=== PATIENT | female | born 2000 | race Caucasian/White ===

== ENCOUNTER 2021-11-18 19:22 | Emergency (ER) | payer OTHER, SELFPAY ==
[2021-11-18 19:43] VITALS: BP 119/76; PULSE 105; RESP 18; TEMP 37.1; O2SAT 100
--- NOTE | 2021-11-18 20:14 | ED.GENADULT ---
HPI - General Adult General Chief complaint: Upper Respiratory Infection Stated complaint: sinus inf Source: patient Mode of arrival: ambulatory Limitations: no limitations History of Present Illness HPI narrative: Patient presents for evaluation of sinus symptoms for last 3 days. She reports sinus congestion, mucopurulent discharge from her nares, congested sensation in her ears and bilateral tonsillar enlargement. She has a history of recurrent sinusitis, for which she has seen ENT in the past. She was supposed to have a CT of her sinuses done but her insurance denied this. She reports chills without fever. No nausea, vomiting, diarrhea. No recent sick contacts to her knowledge. She was recently around people who were smoking and also was at a [place]. She indicates that these exposures likely contributed to her symptoms. She tried taking some Mucinex without considerable improvement in her symptoms thereafter. Related Data Home Medications Medication Instructions Recorded Confirmed cetirizine 10 mg tablet 10 mg PO DAILY 11/18/21 11/18/21 fluticasone propionate 50 2 spray intranasal DAILY 11/18/21 11/18/21 mcg/actuation nasal spray,suspension omeprazole 20 mg capsule,delayed 20 mg PO DAILY 11/18/21 11/18/21 release Allergies Allergy/AdvReac Type Severity Reaction Status Date / Time Penicillins Allergy Mild itching Verified 11/18/21 19:35 Review of Systems Review of Systems: CONSTITUTIONAL: Denies fever, chills, or sweats. EYES: Denies visual changes, redness, or discharge. ENT: Reports sinus congestion, mucopurulent discharge from her naris, bilateral tonsillar enlargement and congestion in her ears. CARDIOVASCULAR: Denies chest pain, palpitations, or edema. RESPIRATORY: Denies cough or dyspnea. GASTROINTESTINAL: Denies abdominal pain, nausea, vomiting, or diarrhea. GENITOURINARY: Denies dysuria or hematuria. SKIN: Denies rash or itching. MUSCULOSKELETAL: Denies back pain, joint pain, or myalgia. NEUROLOGIC: Denies headache, numbness, dizziness, or weakness. PSYCHIATRIC: Denies anxiety or depression. [facility] Past Medical History Medical History Recurrent sinusitis Surgical History Surgical History No pertinent past surgical history Family History Family History (Updated 11/18/21 @ 20:19 by Dimitri Sandoval, RAMP MANAGER, ) Mother Family history non-contributory Social History Social History Smoking status: Never smoker Alcohol intake: current Alcohol use details: Social Substance use: never Additional living arrangements comments: Lives with point Gender identity (if verbalized by the patient): Female Spiritual care concerns: No Exam Narrative: GENERAL: Well-appearing, well-nourished, and in no acute distress. HEAD: Normocephalic, atraumatic. EYES: PERRLA and EOMI. ENT: Nares with thick mucopurulent discharge noted on nasal mucosa. No epistaxis. Mucous membranes moist. Bilateral tonsillar enlargement without erythema or exudate. Uvula is midline.. Bilateral TMs pearly wilkerson nonbulging NECK: Supple. No adenopathy or masses. No carotid bruits or JVD CHEST: Clear to auscultation. No respiratory distress. No wheezes rales or rhonchi HEART: Regular rate and rhythm. No murmur heard. Normal peripheral pulses. ABDOMEN: Soft, nontender, nondistended, normal active bowel sounds. EXTREMITIES: Normal range of motion. No edema. SKIN: Warm, dry, no rash. NEURO: No focal deficits. Alert and oriented x3. PSYCH: Normal mood and affect. Course Course Emergency Course: This is a 21-year-old female who presented for evaluation of sinus. She has a history of recurrent bacterial sinusitis and was under the care of ENT. She was unable to get her CT scan as it was denied by her insurance. Based on nature of her s
== END 2021-11-18 20:20 | disposition home or self-care (01) ==
PROVIDERS: Emergency Provider Nurse Practitioner
DX: J32.9 Chronic sinusitis, unspecified (principal)
CPT/HCPCS: 99213; G0463

== ENCOUNTER 2021-12-19 10:40 | Emergency (ER) | payer OTHER, SELFPAY ==
--- NOTE | ~2021-12-19 | CT_ITS ---
EXAMINATION: CT abdomen pelvis w con DATE: 12/19/2021 12:19 INDICATION: Right lower quadrant abdominal pain, nausea and vomiting TECHNIQUE: Computed tomography (CT) of the abdomen and pelvis was performed with 100 CC Omnipaque 350 intravenous contrast. Automated exposure control and iterative reconstruction technique were employe d. Exam dose: 260.30 mGy-cm total exam DLP. COMPARISON: None. FINDINGS: The lung bases are clear. Normal heart size. No pericardial or pleural effusion. There is cholelithiasis. Gallbladder wall thickness appears within normal range. No pericholecystic f luid or fat stranding. No bile duct or pancreatic duct dilatation. No hepatic, splenic, pancreatic, and adrenal space-occupying mass lesion. There is right mild nephromegaly, diminished intensity contrast enhancement and mild perinephric fat stranding. There is mild right hydroureteronephrosis and some periureteral stranding on the right. No urinary tract calculus is detected. No suspicious renal mass lesion. The urinary bladder, uterus and adnexal areas are unremarkable. Normal caliber of the abdominal aorta. There are some shoddy nonenlarged right iliac lymph nodes. No intraperitoneal or retroperitoneal or pelvic mass lesion or adenopathy or ascites. Small sliding hiatal hernia Mild sigmoid diverticulosis; no evidence of diverticulitis. No bowel obstruction, bowel wall thickeni ng, pneumatosis or intraperitoneal free air is detected. The appendix is not clearly identified; appendicitis is not definitively confirmed or excluded. No in flamed fat or abscess or free air is noted. Clinical correlation is advised. Small fat-containing umbilical hernia. No suspicious osteolytic or osteoblastic lesions. IMPRESSION: Right nephromegaly, diminished in density of right renal enhancement and minimal right p erinephric stranding in addition to mild right hydroureteronephrosis and periureteral stranding, with out evidence of calculus. Right urinary tract infection is suggested Appendix is not definitively demonstrated. No definite CT evidence of appendicitis and no evidence of fat inflammation or abscess in the right lower quadrant Cholelithiasis Small sliding hiatal hernia Mild sigmoid diverticulosis; no evidence of diverticulitis Reviewed, dictated and finalized at [facility]. Reviewed, dictated and finalized at [facility]. IMPRESSION: Right nephromegaly, diminished in density of right renal enhanceme nt and minimal right perinephric stranding in addition to mild right hydrourete ronephrosis and periureteral stranding, without evidence of calculus. Right uri nary tract infection is suggested Appendix is not definitively demonstrated. No definite CT evidence of appendici tis and no evidence of fat inflammation or abscess in the right lower quadrant Cholelithiasis Small sliding hiatal hernia Mild sigmoid diverticulosis; no evidence of diverticulitis
--- NOTE | ~2021-12-19 | US_ITS ---
EXAMINATION: US pelvic complete DATE: 12/19/2021 13:32 INDICATION: Right lower quadrant abdominal pain. TECHNIQUE: Multiple transabdominal sonographic images of the pelvis were obtained. COMPARISON: CT abdomen and pelvis 12/19/2021 FINDINGS: The uterus measures 8.0 x 2.7 x 3.9 cm. There is no free fluid in the pelvis. The endometrial complex measures 6 mm in thickness. The right ovary measures 3.1 x 2.0 x 2.5 cm. The left ovary measures 3.7 x 2.2 x 3.0 cm. IMPRESSION: 1. Normal pelvis. Reviewed, dictated and finalized at [facility]. IMPRESSION: 1. Normal pelvis.
[2021-12-19 10:51] VITALS: BP 116/71; PULSE 80; RESP 16; TEMP 36.6; O2SAT 100
--- NOTE | 2021-12-19 11:24 | ED.ABDPAIN ---
HPI - Abdominal Pain General Chief Complaint: Abdominal Pain Stated Complaint: right flank pain/ RLQ pain Time Seen by Provider: 12/19/21 11:00 History of Present Illness HPI narrative: Patient is a 21-year-old female here for evaluation of right lower quadrant abdominal pain for the past 3 hours. Patient states the pain is severe in nature, has increased in severity since onset. She has also had 2 episodes of vomiting nonbloody/nonbilious emesis today. Last p.o. intake was chicken tenders last evening. Has not taken any medication for pain. Denies any diarrhea, constipation, fevers, vaginal discharge or vaginal bleeding. Has had no history of abdominal surgeries in the past. Related Data Home Medications Medication Instructions Recorded Confirmed cetirizine 10 mg tablet 10 mg PO DAILY 11/18/21 11/18/21 fluticasone propionate 50 2 spray intranasal DAILY 11/18/21 11/18/21 mcg/actuation nasal spray,suspension omeprazole 20 mg capsule,delayed 20 mg PO DAILY 11/18/21 11/18/21 release Allergies Allergy/AdvReac Type Severity Reaction Status Date / Time Penicillins Allergy Mild itching Verified 12/19/21 10:54 Review of Systems Review of Systems: Gen: Denies fevers or chills Eyes: Denies eye pain or visual change ENT: Denies congestion Respiratory: Denies shortness of breath or cough CV: Denies chest pain or palpitations GI: Reports right lower quadrant abdominal pain, nausea and vomiting. denies burning, urgency, frequency or hematuria Musculoskeletal: Denies back pain or muscle pain Neuro: Denies numbness, tingling, weakness or focal weakness Skin: Denies rash Except as documented, all other systems reviewed and negative [facility] Past Medical History Medical History Recurrent sinusitis Surgical History Surgical History No pertinent past surgical history Family History Family History (Updated 11/18/21 @ 20:19 by Dimitri Sandoval, MELONIE, KAMAR) Mother Family history non-contributory Social History Social History Smoking status: Never smoker Alcohol intake: current Alcohol use details: Social Substance use: never Additional living arrangements comments: Lives with [facility] Gender identity (if verbalized by the patient): Female Spiritual care concerns: No Exam Narrative: APPEARANCE: Uncomfortable appearing Head: Normocephalic and atraumatic. EYES: PERRLA/EOMI, conjunctivae clear NOSE: No nasal drainage EARS: External ear normal in appearance THROAT: Oropharynx is clear. Mucous membranes are moist. NECK: Supple. No adenopathy, no masses. RESPIRATORY: Airway patent, respirations nonlabored. Clear to auscultation bilaterally, no rales, rhonchi, wheezing. CARDIOVASCULAR: Regular rate and rhythm without murmurs, rubs, or gallops. ABDOMINAL: Tender to palpation in the right lower quadrant with involuntary guarding. MUSCULOSKELETAL: Extremities are warm and well-perfused. Moves all extremities well. No edema. NEURO: Normal speech. No focal neurologic deficits. SKIN: Skin is warm and dry. No rashes. PSYCHIATRIC: Normal affect/mood. Course Vital Signs Vital signs: Vital Signs Temperature 97.9 F 12/19/21 10:51 Pulse Rate 80 12/19/21 10:51 Respiratory Rate 16 12/19/21 10:51 Blood Pressure 116/71 12/19/21 10:51 Pulse Oximetry 100 12/19/21 10:51 Temperature 97.9 F 12/19/21 10:51 Pulse Rate 86 12/19/21 14:45 Respiratory Rate 16 12/19/21 14:45 Blood Pressure 142/86 H 12/19/21 14:45 Pulse Oximetry 98 12/19/21 14:45 MDM - Abdominal Pain MDM Narrative Medical decision making narrative: 21-year-old female here for evaluation of right lower quadrant abdominal pain nausea and vomiting today. Patient is uncomfortable appearing, tender to palpation in the right lower libert[place]
[2021-12-19] MEDS: ONDANSETRON INJ 4 MG/2 ML VIAL IV PUSH (11:26)
[2021-12-19] MEDS: SODIUM CHLORIDE 0.9% IV 1,000 ML 999 ML IV CONT (11:26)
[2021-12-19 11:47] LABS: Basophils Percent Auto 0.2 % (0.2-1.2); Eosinophils Absolute Auto 0.1 K/mm3 (0-0.3); Eosinophils Percent Auto 1.5 % (0-4.4); Hematocrit 43.3 % (37.0-47.0); Hemoglobin 14.6 g/dL (12.0-15.0); Immature Granulocyte Absolute 0.04 K/mm3 (0.00-0.031); Immature Granulocyte Percent A 0.5 % (0-0.5); Lymphocytes Absolute Auto 2.93 K/mm3 (0.9-3.2); Lymphocytes Percent Auto 34.8 % (18.3-44.2); Mean Corpuscular HGB Conc 33.7 g/dl (32-36); Mean Corpuscular Hemoglobin 30.2 pg (26-34); Mean Corpuscular Volume 89.6 fl (80-100); Mean Platelet Volume 9.5 fl (7.4-10.4); Monocytes Absolute Auto 0.4 K/mm3 (0.1-0.6); Neutrophils Absolute Auto 4.9 K/mm3 (1.3-6.7); Platelet Count Result 275 k/mm3 (150-375); Red Blood Count 4.83 M/mm3 (4.2-5.4); Red Cell Distribution Width 12.6 % (11.5-14.5); White Blood Count 8.4 K/mm3 (4.5-10.0)
[2021-12-19 11:58] LABS: Lactic Acid Reflex 1.5 mmol/L (0.7-2.0)
[2021-12-19 11:59] LABS: Alanine Aminotransferase 19 U/L (6-35); Albumin Level 4.4 g/dL (3.5-5.1); Alkaline Phosphatase 81 U/L (38-126); Anion Gap 13 mmol/L (8-16); Aspartate Amino Transferase 22 U/L (14-36); Bilirubin,Total 0.4 mg/dL (0.2-1.3); Blood Urea Nitrogen 12 mg/dL (7-17); Calcium 8.9 mg/dL (8.4-10.2); Carbon Dioxide 26 mmol/L (22-30); Chloride 102 mmol/L (98-107); Estimated CRCL calculation 95 ml/min; Estimated Glomerular Filt Rate > 60; Glucose 119 mg/dL (65-110); Lipase 66 U/L (23-300); Potassium 3.4 mmol/L (3.4-5.0); Sodium 141 mmol/L (137-145)
[2021-12-19 12:15] LABS: Beta HCG Quantitative < 2.39 mIU/ML
[2021-12-19 12:17] LABS: Appearance Urine Clear (Clear); Bacteria Urine Trace /hpf; Bilirubin Urine Negative (Negative); Blood Urine 2+ (Negative); Color Urine Yellow (Yellow); Glucose Urine UA Negative (Negative); Ketones Urine Negative (Negative); Leukocyte Esterase Ur Negative LEU/UL (Negative); Mucus Urine Rare /lpf; Nitrate Urine Negative (Negative); Protein Urine Negative (Negative); RBC Urine 51-75 /hpf (0-2); Specific Grav Ur 1.025 (1.001-1.035); Squamous Epithelial Cell Urine Occasional /hpf (Few); Urobilinogen Urine 0.2 mg/dL (<2.0); WBC Urine 0-3 /hpf
[2021-12-19 12:21] LABS: Add Urine Microscopic? YES
[2021-12-19] MEDS: MORPHINE SULFATE (*CRX) 4 MG/ML INJ IV PUSH (12:41)
[2021-12-19 14:45] VITALS: BP 142/86; PULSE 86; RESP 16; O2SAT 98
== END 2021-12-19 14:10 | disposition home or self-care (01) ==
PROVIDERS: Physician Assistant; Emergency Provider Emergency Medicine
DX: N39.0 Urinary tract infection, site not specified (principal); J32.9 Chronic sinusitis, unspecified; K80.20 Calculus of gallbladder without cholecystitis without obstruction; K44.9 Diaphragmatic hernia without obstruction or gangrene; K57.30 Diverticulosis of large intestine without perforation or abscess without bleeding
CPT/HCPCS: 36415; 74177; 76856; 80053; 81001; 81025; 83605; 83690; 84702; 85025; 96365; 96366; 96375; 99284; J0131; J2270; J2405; J7030; Q9967

== ENCOUNTER 2022-04-17 11:51 | Emergency (ER) | payer OTHER, SELFPAY ==
--- NOTE | 2022-04-17 11:57 | ED.URI ---
HPI - URI/Sore Throat General Chief Complaint: Upper Respiratory Infection Stated Complaint: SOB Time Seen by Provider: 04/17/22 11:57 Source: patient Mode of arrival: ambulatory Limitations: no limitations History of Present Illness HPI Narrative: Jacquelyn is a [age]-year-old female patient presenting to the clinic today with complaints of cough and shortness of breath times 2-3 days. She reports cough is productive at times. She reports that she does has seasonal allergies. No history of COPD or asthma. She is a nonsmoker MD elicited complaint: cough, nasal congestion and other (Shortness of breath) Related Data Home Medications Medication Instructions Recorded Confirmed cetirizine 10 mg tablet 10 mg PO DAILY 11/18/21 04/17/22 Allergies Allergy/AdvReac Type Severity Reaction Status Date / Time doxycycline Allergy Intermediate Vomiting Verified 04/17/22 12:10 Penicillins Allergy Intermediate Vomiting Verified 04/17/22 12:11 Review of Systems Review of Systems: Pertinent positives per HPI. Patient denies any fever, chills, rash, headache, visual changes, dizziness, chest pain, palpitations, nausea, vomiting, diarrhea, constipation, abdominal pain, or any urinary issues. [facility] Past Medical History Medical History Recurrent sinusitis Surgical History Surgical History No pertinent past surgical history Family History Family History Mother Family history non-contributory Social History Social History Smoking status: Never smoker Alcohol intake: current Alcohol use details: Social Substance use: never Additional living arrangements comments: Lives with [facility] Gender identity (if verbalized by the patient): Female Spiritual care concerns: No Comments At the time of my signature, I reviewed and agree with the nursing past medical, surgical, social, and family history. There is no relevant family history pertinent to the patient complaint. Exam Narrative: General: Well-developed, well nourished, in no apparent distress Head: Normocephalic, atraumatic Eyes: Pupils equally round and reactive to light bilaterally, EOM intact, sclera and conjunctive clear, no discharge, lids normal Ears: TMs intact and clear, ear canals clear, no drainage, grossly hearing normal. Nose: Nares patent, clear discharge, moderate inflammation, mild frontal and maxillary sinus tenderness. Mouth: Oral pharynx without lesions or masses, good dentition, MMM. Postnasal drip Neck: Supple, trachea midline, no enlargement of anterior or posterior cervical nodes, no thyroid masses or goiter palpable. Cardio: Regular rate and rhythm, s1 and s2 normal, no murmur appreciated. Resp: Expiratory wheezing in the left and right upper lung lobes, no rhonchi, rales, or rubs Course Course Emergency Course: Portions of this record may have been created with voice recognition software. Level of Care: Express Care Visit Vital Signs Vital signs: Vital Signs Temperature 36.9 C 04/17/22 12:03 Pulse Rate 92 04/17/22 12:03 Respiratory Rate 16 04/17/22 12:03 Blood Pressure 105/66 04/17/22 12:03 Pulse Oximetry 99 04/17/22 12:03 Oxygen Delivery Room Air 04/17/22 12:03 Temperature 36.9 C 04/17/22 12:03 Pulse Rate 92 04/17/22 12:03 Respiratory Rate 16 04/17/22 12:03 Blood Pressure 105/66 04/17/22 12:03 Pulse Oximetry 99 04/17/22 12:03 Oxygen Delivery Room Air 04/17/22 12:03 Vital signs reviewed MDM - URI/Sore Throat MDM Narrative Medical decision making narrative: At the time of visit patient is resting comfortably on the exam table. I suspect patient has bronchitis. Prescription for albuterol inhaler and prednisone was sent to pharmacy and suppo
[2022-04-17 12:03] VITALS: BP 105/66; PULSE 92; RESP 16; TEMP 36.9; O2SAT 99
== END 2022-04-17 12:17 | disposition home or self-care (01) ==
PROVIDERS: Emergency Provider Nurse Practitioner Family; PCP Physician Assistant
DX: J40 Bronchitis, not specified as acute or chronic (principal)
CPT/HCPCS: 99213; G0463

== ENCOUNTER 2022-07-13 16:47 | Emergency (ER) | payer OTHER, SELFPAY ==
[2022-07-13 17:06] VITALS: BP 128/82; PULSE 88; RESP 16; TEMP 37.1; O2SAT 100
--- NOTE | 2022-07-13 17:34 | ED.FEMALEGU ---
HPI - Female Genitourinary General Chief complaint: Urogenital-Female Stated complaint: UTI/Pelvic Pressure Time Seen by Provider: 07/13/22 17:30 Source: patient, RN notes reviewed and old records reviewed Mode of arrival: ambulatory Limitations: no limitations History of Present Illness HPI Narrative: 22 year old female who presents to [facility] care with complaints of left sided back pain and also lower abdomen pressure feeling for one week. Patient reports increase in vaginal discharge but states no itching.Patient reports no new sex partner. Patient reports that she has had previous history of UTI's and has had previous ovarian cyst. Patient reports that she has not had any fevers,chills or sweats, is presently not on any control with last menstrual cycle about a week ago and was light. MD elicited complaint: pelvic pain Pertinent past history: other (UTI, ovarian cyst) Onset (ago): week(s) (1) Severity: mild Vaginal discharge: white Related Data Home Medications Medication Instructions Recorded Confirmed cetirizine 10 mg tablet 10 mg PO DAILY 11/18/21 07/13/22 omeprazole 20 mg capsule,delayed 20 mg PO DAILY 07/13/22 07/13/22 release Allergies Allergy/AdvReac Type Severity Reaction Status Date / Time doxycycline Allergy Intermediate Vomiting Verified 07/13/22 16:53 Penicillins Allergy Intermediate Vomiting Verified 07/13/22 16:53 Review of Systems Review of Systems: CONSTITUTIONAL: Denies fever, chills, or sweats. CARDIOVASCULAR: Denies chest pain, palpitations, or edema. RESPIRATORY: Denies cough or dyspnea. GASTROINTESTINAL: Denies abdominal pain, nausea, vomiting, or diarrhea. GENITOURINARY: Reports no dysuria, frequency, urgency. reports left flank pain no hematuria.lower abdominal pressure on left side especially, white discharge SKIN: Denies rash or itching. MUSCULOSKELETAL: Reports left flank pain no myalgia. left CVA tenderness NEUROLOGIC: Denies headache All systems reviewed & are unremarkable except as noted in HPI and below PMFSH Past Medical History Medical History (Updated 07/16/22 @ 07:13 by Mary Nuñez NP) GERD (gastroesophageal reflux disease) Recurrent sinusitis Surgical History Surgical History No pertinent past surgical history Family History Family History Mother Family history non-contributory Social History Social History Smoking status: Never smoker Alcohol intake: current Alcohol use details: Social Substance use: never Additional living arrangements comments: Lives with [facility] Gender identity (if verbalized by the patient): Female Spiritual care concerns: No Comments At time of signature, agree with nursing past medical, surgical, social and family history. There is no relevant family history pertinent to the presenting complaint Exam Narrative: GENERAL: Well-appearing, well-nourished, and in no acute distress. HEAD: Normocephalic, atraumatic. NECK: Supple.no lymphadenopathy CHEST: Clear to auscultation. No respiratory distress.SAO2 100% on room air HEART: Regular rate and rhythm. No murmur heard. Normal peripheral pulses. ABDOMEN: Soft, tender lower abdomen especially left, nondistended, normal active bowel sounds. left CVA tenderness EXTREMITIES: Normal range of motion. No edema. SKIN: Warm, dry, no rash. NEURO: No focal deficits. Alert and oriented x3. : Speculum Exam - Vagina: normal appearance of the vagina and abnormal vaginal discharge Speculum Exam - Cervix: Cervical os closed ( redness of cervix at 6o'clock) Bimanual Exam- Adnexa, other: tender bilaterally Other: Vaginal culture obtained and sent to lab for analysis Course Course Emergency Course: Patient is aware of diagnosis, understands and agrees to treatment plan.? Anticipator
== END 2022-07-13 18:30 | disposition home or self-care (01) ==
PROVIDERS: Emergency Provider Registered Nurse; PCP Physician Assistant
DX: N30.90 Cystitis, unspecified without hematuria (principal); N76.0 Acute vaginitis; K21.9 Gastro-esophageal reflux disease without esophagitis
CPT/HCPCS: 81003; 81025; 87070; 87086; 87491; 87591; 87661; 99214; G0463

== ENCOUNTER 2023-10-23 18:02 | Emergency (ER) | payer OTHER, SELFPAY ==
[2023-10-23 18:13] VITALS: BP 113/69; PULSE 87; RESP 19; TEMP 37.2; O2SAT 99
[2023-10-23 18:36] LABS: EDUAAPPEAR Cloudy; EDUABILI Negative; EDUABLOOD Negative; EDUACOLOR1 Yellow; EDUAGLUCOSE Negative; EDUAKETONE Negative; EDUALEUKO Trace; EDUANITRATE Negative; EDUAPROTEIN Negative; EDUASPGRAVITY 1.015; EDUAUROBILI 0.2
[2023-10-23 18:42] LABS: BEDSIDEPREGUCG Negative
--- NOTE | 2023-10-23 19:03 | ED.FEMALEGU ---
HPI - Female Genitourinary General Chief complaint: Urogenital-Female Stated complaint: UTI Time Seen by Provider: 10/23/23 19:03 Source: patient, RN notes reviewed and old records reviewed Mode of arrival: ambulatory Limitations: no limitations History of Present Illness HPI Narrative: 23-year-old female presents to the [facility] with concerns for a UTI. Patient reports she has had urinary symptoms, discomfort for about a week, burning started about 2 days ago. Has not had a period recently. Started a new control Denies concerns for STDs Onset (ago): day(s) (2) Related Data Home Medications Medication Instructions Recorded Confirmed norgestimate 0.25 mg-ethinyl tablet 10/23/23 estradiol 35 mcg tablet (Emily) Allergies Allergy/AdvReac Type Severity Reaction Status Date / Time doxycycline Allergy Intermediate Vomiting Verified 10/23/23 18:18 Penicillins Allergy Intermediate Vomiting Verified 10/23/23 18:18 Review of Systems Review of Systems: All systems reviewed & are unremarkable except as noted in HPI and below Constitutional: Constitutional: Reports no additional constitutional complaints Eyes: Eyes: Reports no additional eye complaints ENT: Reports system reviewed and no additional complaints, except as documented Cardiovascular: Cardiovascular: Reports no additional cardiovascular complaints, Denies chest pain and Denies dyspnea Respiratory: Respiratory: Reports no additional respiratory complaints, Denies chest congestion, Denies cough and Denies dyspnea Gastrointestinal: Gastrointestinal: Reports no additional gastrointestinal complaints, Denies abdominal pain, Denies nausea and Denies vomiting Genitourinary: Genitourinary: Reports as per HPI Musculoskeletal: Musculoskeletal: Reports no additional musculoskeletal complaints Integumentary/Breasts: Skin/Breast: Reports system reviewed and no additional complaints, except as docu Neurologic: Reports system reviewed and no additional complaints, except as documented Psychiatric: Psychiatric: Reports no additional psychiatric complaints Allergic/Immunologic: Allergic/Immunologic: Reports no additional allergic/immunologic complaints [facility] Past Medical History Medical History GERD (gastroesophageal reflux disease) Recurrent sinusitis Surgical History Surgical History No pertinent past surgical history Family History Family History Mother Family history non-contributory Social History Social History Smoking status: Never smoker Alcohol intake: current Alcohol use details: Social Substance use: never Additional living arrangements comments: Lives with [facility] Gender identity (if verbalized by the patient): Female Spiritual care concerns: No Comments At the time of my signature, I reviewed and agree with the nursing past medical, surgical, social, and family history. There is no relevant family history pertinent to the patient complaint. Exam Const: General: cooperative, healthy appearing, comfortable, no acute distress, well developed, alert and well nourished Nutritional Appearance: well nourished Orientation/consciousness: patient oriented x3 Limitations: no limitations HENMT: Head: normal to inspection Ears: hearing grossly normal bilaterally and external ears normal Face/Nose/Sinus: Normal external nose present, Normal nares present, Normal nasal mucous membranes and turbinates present, normal facial exam and face symmetric Face and sinus: normal facial exam and face symmetric Eyes: General: appearance normal, both eyes and all related structures Alignment and Position: alignment normal Periorbital: periorbital findings normal Neck: Neck: normal visual inspection, full ROM, no lymphadenopathy a
== END 2023-10-23 19:15 | disposition home or self-care (01) ==
PROVIDERS: Emergency Provider Nurse Practitioner
DX: N39.0 Urinary tract infection, site not specified (principal); B95.1 Streptococcus, group B, as the cause of diseases classified elsewhere; K21.9 Gastro-esophageal reflux disease without esophagitis
CPT/HCPCS: 81003; 81025; 87077; 87086; 87088; 99213; G0463

== ENCOUNTER 2024-07-08 13:59 | Emergency (ER) | payer OTHER, SELFPAY ==
--- NOTE | 2024-07-08 14:01 | ED_ITS ---
HPI - URI/Sore Throat General Chief Complaint: Upper Respiratory Infection Stated Complaint: Upper Respiratory Infection Time Seen by Provider: 07/08/24 14:39 Source: patient, RN notes reviewed and old records reviewed Mode of arrival: ambulatory Limitations: no limitations History of Present Illness HPI Narrative: 24-year-old female presents to the [facility] with complaints of follow-up great fevers, joint pain, chills, sinus pressure, ear pressure and nasal drainage since yesterday. Nasal saline rinse today. Had tried an [id number] 1 time today she is Related Data Home Medications ?Medication ?Instructions ?Recorded ?Confirmed ?Last Taken ?Type norgestimate 0.25 mg-ethinyl tablet 10/23/23 Unknown History estradiol 0.035 mg tablet (Emily) Allergies Allergy/AdvReac Type Severity Reaction Status Date / Time doxycycline Allergy Intermediate Vomiting Verified 07/08/24 14:15 Penicillins Allergy Intermediate Vomiting Verified 07/08/24 14:15 Review of Systems Review of Systems: All systems reviewed & are unremarkable except as noted in HPI and below Constitutional: Constitutional: Reports as per HPI ENT: Reports as per HPI Cardiovascular: Cardiovascular: Reports no additional cardiovascular complaints, Denies chest pain and Denies dyspnea Respiratory: Respiratory: Reports no additional respiratory complaints, Denies chest congestion, Denies cough and Denies dyspnea Musculoskeletal: Musculoskeletal: Reports no additional musculoskeletal complaints Integumentary/Breasts: Skin/Breast: Reports system reviewed and no additional complaints, except as docu PMFSH Past Medical History Medical History GERD (gastroesophageal reflux disease) Recurrent sinusitis Surgical History Surgical History No pertinent past surgical history Family History Family History Mother Family history non-contributory Social History Social History Smoking status: Never smoker Alcohol intake: current Alcohol use details: Social Substance use: never Additional living arrangements comments: Lives with [place] Gender identity (if verbalized by the patient): Female Spiritual care concerns: No Comments At the time of my signature, I reviewed and agree with the nursing past medical, surgical, social, and family history. There is no relevant family history pertinent to the patient complaint. Exam Const: General: cooperative, healthy appearing, comfortable, no acute distress, well developed, alert and well nourished Nutritional Appearance: well nourished Orientation/consciousness: patient oriented x3 Limitations: no limitations HENMT: Head: normal to inspection Ears: hearing grossly normal bilaterally, external ears normal, TM's normal bilaterally, EAC's normal, mastoids normal and no periauricular adenopathy Mouth: Yes Normal oral and palatal mucosa present, Yes lip normal, Yes tongue normal and Yes moist mucous membranes Throat: posterior oropharynx normal, uvula midline and no uvular edema Eyes: General: appearance normal, both eyes and all related structures Alignment and Position: alignment normal Neck: Neck: normal visual inspection, full ROM, no lymphadenopathy and no meningeal signs Chest: Chest palpation & inspection: normal inspection of the chest Resp: Effort & Inspection: normal respiratory effort and able to speak in complete sentences Auscultation: clear to auscultation bilaterally, no crackles, no rales, no rhonchi and no wheezes Cardio: Rate: regular rate Skin: General skin exam: normal color and no rashes or lesions noted Neuro: General: patient oriented x3, gait normal, moves all extremities and no meningeal signs Cognition (Neuro): normal cognition Speech: normal speech Gait exam (Neuro): Normal gait present Extrem: General: normal to inspection, full ROM, capillary refill normal and normal gait Psych: Appearance: grossly normal and well kempt Mental Status: mental status grossly normal Speech and movement: Normal speech and movement present and Clear speech present Affect: normal affect Attitude: cooperative Course Course Level of Care: Express Care Visit Vital Signs Vital signs: Vital Signs Temperature 98 F 07/08/24 14:10 Pulse Rate 95 07/08/24 14:10 Respiratory Rate 14 07/08/24 14:10 Blood Pressure 144/82 H 07/08/24 14:10 Pulse Oximetry 100 07/08/24 14:10 Oxygen Delivery Room Air 07/08/24 14:10 Temperature 98 F 07/08/24 14:10 Pulse Rate 95 07/08/24 14:10 Respiratory Rate 14 07/08/24 14:10 Blood Pressure 144/82 H 07/08/24 14:10 Pulse Oximetry 100 07/08/24 14:10 Oxygen Delivery Room Air 07/08/24 14:10 Reviewed MDM - URI/Sore Throat MDM Narrative Medical decision making narrative: Patient sitting comfortably in exam room. Patient is nontoxic, vitals are stable. Patient presents with URI symptoms for 1 day. Flu and COVID were negative. Patient appropriate for outpatient treatment with close follow-up of URI. Discharge instructions reviewed with patient, as well as provided in writing per nursing staff. The instructions also include specific and strict return/GO TO THE ER as well as f/u information. All questions have been answered, and the patient deny any further questions with discharge and discharge plan. Some parts of this dictation were generated by voice recognition software and may contain typographical and/or grammatical inaccuracies. Differential Diagnosis Differential diagnosis: Likely upper respiratory infection, otitis media, sinusitis, viral infection, bronchitis, influenza and pharyngitis Lab Data Labs: Lab Results 07/08/24 Range/Units 14:26 POC Influenza A Ag Negative (Negative) POC Influenza B Ag Negative (Negative) POC SARS CoV-2 Ag Negative (Negative) Reviewed Critical Care Time Critical Care Time Critical Care Time: No Discharge Plan Discharge Clinical Impression: Upper respiratory infection Qualifiers: URI type: unspecified viral URI Qualified Code(s): J06.9 - Acute upper respiratory infection, unspecified Patient Disposition: Home Condition: Stable Instructions: Antibiotic Form, Upper Respiratory Infection (DC) Additional Instructions: Your rapid COVID test were negative Your rapid flu test was negative Your symptoms are likely due to a viral illness, which is not treated with antibiotics. Typically viral infections last 7-10 days, can linger for couple of weeks. It is very important to treat your symptoms. Drink plenty of water, Gatorade, Pedialyte, ice pops or Jell-O. -Alternate Tylenol and Motrin per package directions for fever or pain. You can alternate every 4 hours -Antihistamine medication such as Zyrtec/Claritin/Gin during the day can h elp improve symptoms. -doing daily nasal irrigations can help relieve pressure your sinuses. Things like a Neti pot -Use Flonase twice a day for 5 days then daily to help reduce the inflammation and dry up your sinuses. -You can also use Mucinex. Be sure to drink plenty of water with this medication at least 8 ounces with every dose and it is important to drink 8 to 10 glasses of water per day. Water is a natural decongestant -Eat and drink things that are easy to swallow, like tea or soup, or popsicles. -Oral rinses such as: Salt water gargles and/or may use topical anesthetic (eg. Chloraseptic spray) or lozenges to relieve dryness or throat pain). -Frequent hand washing or hand puller through is one of the best ways to prevent spread of infection. -Using a vaporizer or humidifier at night will also help thin secretions and help with coughing up phlegm. -Follow up with primary care provider in 7-10 days if condition is not improving - For new or worsening symptoms go directly to the nearest ER you touch the Patient Language: Macedonian Prescriptions: No Action norgestimate-ethinyl estradiol [Emily] 0.25-35 mg-mcg tablet Follow-up/Referrals: UNKNOWN,DOCTOR [Non-Staff] - Stand Alone Forms: Work/School Release IP Time of Disposition: 14:45
[2024-07-08 14:10] VITALS: BP 144/82; PULSE 95; RESP 14; TEMP 36.6; O2SAT 100
[2024-07-08 14:29] LABS: EDCOVIDSCREEN Negative (Negative); EDINFLUASCREEN Negative (Negative); EDINFLUBSCREEN Negative (Negative)
== END 2024-07-08 15:05 | disposition home or self-care (01) ==
PROVIDERS: Emergency Provider Nurse Practitioner
DX: J06.9 Acute upper respiratory infection, unspecified (principal); Z20.822 Contact with and (suspected) exposure to COVID-19; K21.9 Gastro-esophageal reflux disease without esophagitis
CPT/HCPCS: 87426; 87804; 99212; G0463

== ENCOUNTER 2024-11-14 18:59 | Emergency (ER) | payer OTHER, SELFPAY ==
[2024-11-14 19:05] VITALS: BP 121/73; PULSE 94; RESP 16; TEMP 37.1; O2SAT 100
--- NOTE | 2024-11-14 19:18 | ED.FEMALEGU ---
HPI - Female Genitourinary General Chief complaint: Urogenital-Female Stated complaint: UTI Time Seen by Provider: 11/14/24 19:18 Source: patient, RN notes reviewed and old records reviewed Mode of arrival: ambulatory Limitations: no limitations History of Present Illness HPI Narrative: 24 year old female who presents [facility] with complaint of burning when she urinates, feels irritated, and has noted some whitish discharge that is itchy for the past week. Patient reports no suprapubic pain, frequency or any urgency with urination. Patient reports that she heas had some low back pain for the past 3 weeks.Patient has not taken any OTC medication or used any monistat OTC for her symptoms MD elicited complaint: UTI and other (irritation with urination) Onset (ago): week(s) (1) Location of symptoms: vaginal Vaginal discharge: white (itchy no odor) Vaginal bleeding: none Treatment prior to arrival: none Related Data Home Medications ?Medication ?Instructions ?Recorded ?Confirmed ?Last Taken ?Type norgestimate 0.25 mg-ethinyl 1 tablet 10/23/23 Unknown History estradiol 0.035 mg tablet (Emily) Allergies Allergy/AdvReac Type Severity Reaction Status Date / Time doxycycline Allergy Intermediate Vomiting Verified 11/14/24 19:10 Penicillins Allergy Intermediate Vomiting Verified 11/14/24 19:10 Review of Systems Review of Systems: CONSTITUTIONAL: Denies fever, chills, or sweats. CARDIOVASCULAR: Denies chest pain, palpitations, or edema. RESPIRATORY: Denies cough or dyspnea. GASTROINTESTINAL: Denies abdominal pain, nausea, vomiting, or diarrhea. GENITOURINARY: Reports dysuria, no frequency, urgency. Denies flank pain or hematuria.reports white vaginal discharge that is itchy SKIN: Denies rash or itching. MUSCULOSKELETAL: reports some low back pain or myalgia for 3 weeks. Denies CVA tenderness NEUROLOGIC: Denies headache All systems reviewed & are unremarkable except as noted in HPI and below [facility] Past Medical History Medical History (Updated 11/15/24 @ 12:17 by Mary Nuñez NP) Ovarian cyst Pneumonia Scoliosis GERD (gastroesophageal reflux disease) Recurrent sinusitis Surgical History Surgical History No pertinent past surgical history Family History Family History Mother Family history non-contributory Social History Social History (Updated 11/15/24 @ 12:18 by Mary Nuñez NP) Smoking status: Never smoker Alcohol intake: current Alcohol use details: Social Substance use: current Substance use type: marijuana Gender identity (if verbalized by the patient): Female Spiritual care concerns: No Comments At time of signature, agree with nursing past medical, surgical, social and family history. There is no relevant family history pertinent to the presenting complaint Exam Narrative: GENERAL: Well-appearing, well-nourished, and in no acute distress. HEAD: Normocephalic, atraumatic. NECK: Supple.no lymphadenopathy CHEST: Clear to auscultation. No respiratory distress.SAO2 100% on room air HEART: Regular rate and rhythm. No murmur heard. Normal peripheral pulses. ABDOMEN: Soft, nontender, nondistended, normal active bowel sounds. No CVA tenderness reports burning with urination and white itchy discharge EXTREMITIES: Normal range of motion. No edema. SKIN: Warm, dry, no rash. NEURO: No focal deficits. Alert and oriented x3. Course Course Emergency Course: Patient is aware of diagnosis, understands and agrees to treatment plan.? Anticipatory guidance given.? Patient agrees to follow-up as directed and is aware of reasons to seek care at the emergency department. Portions of this record may have been created with voice recognition software Level of Care: Express Care Visit Vital Signs Vital signs: Vital Signs Temperature 37.1 C 11/14/24 19:05 Pulse Rate 94 11/14/24 19:05 Respiratory Rate 16 11/14/24 19:05 Blood Pressure 121/73 11/14/24 19:05 Pulse Oximetry 100 11/14/24 19:05 Oxygen Delivery Room Air 11/14/24 19:05 Temperature 37.1 C 11/14/24 19:05 Pulse Rate 94 11/14/24 19:05 Respiratory Rate 16 11/14/24 19:05 Blood Pressure 121/73 11/14/24 19:05 Pulse Oximetry 100 11/14/24 19:05 Oxygen Delivery Room Air 11/14/24 19:05 reviewed MDM - Female Genitourinary MDM Narrative Medical decision making narrative: Exam findings and UA show no acute concerns or changes; patient is non-toxic appearing and is in no distress.? Patient is appropriate for outpatient treatment and follow-up. Differential Diagnosis Differential diagnosis: Likely urinary tract infection, cystitis and other (vaginal yeast infection, dysuria) Medical Records Attestation: I reviewed the patient's medical records. Lab Data Attestation: I reviewed the patient's lab results. Lab results narrative: urine dip:glucose negative, bilirubin negative, ketone negative, Specific gravity 1.015, blood negative PH 7.5, Protein negative, urobilinogen 0.2, nitrate negative, Leukocyte negative Labs: Lab Results 11/14/24 Range/Units 19:27 POC Urine Color Yellow POC Urine Clarity Clear POC Urine pH 7.5 POC Ur Specif [place] 1.015 POC Urine Protein Negative (Negative) POC Ur Glucose (UA) Negative (Negative) POC Urine Ketones Negative (Negative) POC Urine Blood Negative (Negative) POC Urine Nitrite Negative (Negative) POC Urine Bilirubin Negative (Negative) POC Urine Urobilinogen 0.2 POC U Leukocyte Esteras Negative (Negative) reviewed Critical Care Time Critical Care Time Critical Care Time: No Discharge Plan Discharge Clinical Impression: Dysuria, Vaginal yeast infection Patient Disposition: Home Condition: Stable Instructions: Yeast Infection (ED), Dysuria (ED) Additional Instructions: Increase fluids especially cranberry juice and water Avoid caffeine and carbonated beverages Tylenol/ibuprofen for pain or fever Follow-up with her primary care provider if further problems or concerns Recheck if you have fever over 101, nausea and vomiting. Take Diflucan as prescribed Urine dip normal sent for culture you will be notified if any growth on culture If your symptoms persist, change or worsen significantly before you can contact your personal physician then please, without delay, go to the emergency department for further evaluation. Follow-up with PCP in 7-10 days or sooner if needed Patient Language: Vincentian Prescriptions: New fluconazole 150 mg tablet 150 mg PO ONCE Qty: 2 0RF Rx Instructions: as a single dose and may repeat in 72 hors as needed No Action norgestimate-ethinyl estradiol [Emily] 0.25-35 mg-mcg tablet 1 tablet Follow-up/Referrals: Shirley,Lina Yuen APRN [Primary Care Provider, Unknown] Time of Disposition: 19:30 Quality Dorcas Coma Scale Eyes: Open Verbal: Oriented and Alert Motor: Follows Commands Dorcas Coma Total Score: 15
[2024-11-14 19:30] LABS: EDUAAPPEAR Clear; EDUABILI Negative (Negative); EDUABLOOD Negative (Negative); EDUACOLOR1 Yellow; EDUAGLUCOSE Negative (Negative); EDUAKETONE Negative (Negative); EDUALEUKO Negative (Negative); EDUANITRATE Negative (Negative); EDUAPH 7.5; EDUAPROTEIN Negative (Negative); EDUASPGRAVITY 1.015; EDUAUROBILI 0.2
== END 2024-11-14 19:43 | disposition home or self-care (01) ==
PROVIDERS: Emergency Provider Registered Nurse; PCP Midwife
DX: R30.0 Dysuria (principal); B37.31 Acute candidiasis of vulva and vagina; F12.90 Cannabis use, unspecified, uncomplicated; K21.9 Gastro-esophageal reflux disease without esophagitis
CPT/HCPCS: 81003; 87086; 99213; G0463